=== PATIENT | male | born 1975 | race Caucasian/White ===

== ENCOUNTER 2021-06-25 14:46 | Emergency (ER) | payer SELFPAY ==
[~2021-06-25] VITALS: Ht 167.6 cm; Wt 63.5 kg
--- NOTE | 2021-06-25 15:00 | NUR ---
Pt brought by self, A&Ox4, pt presents to ER with cough/congestion, skin pink and warm, cap refill <3, VSS, respirations even and unlabored
--- NOTE | 2021-06-25 15:10 | NUR ---
Note fatmata in EDM - 06/25/21 at 1604 by [email or web address] Pt brought by self, A&Ox4, pt presents to ER with cough/congestion, skin pink and warm, cap refill <3, VSS.
[2021-06-25 15:14] VITALS: BP_SYST 152
--- NOTE | 2021-06-25 15:30 | NUR ---
Dr Dutton evaluating patient at bedside
[2021-06-25] MEDS ORDERED: ALBMDI INH (15:42)
[2021-06-25 17:30] VITALS: BP_SYST 152
--- NOTE | 2021-06-25 17:30 | NUR ---
Patient given written and verbal discharge instructions and verbalizes understanding. ER MD discussed with patient the results and treatment provided. Patient in stable condition. ID arm band removed. Rx of Albuterol given. Patient educated on pain management and to follow up with PMD. Pain Scale 2/10 . Opportunity for questions provided and answered. Medication side effect fact sheet provided.
== END 2021-06-25 17:30 | disposition home or self-care (01) ==
LOC: SED 14:46
DX: U07.1 COVID-19 (principal); Z79.899 Other long term (current) drug therapy
CPT/HCPCS: 71045; 99284; C9803; U0003

== ENCOUNTER 2021-07-27 05:12 | Emergency (ER) | payer SELFPAY ==
[~2021-07-27] VITALS: Ht 170.2 cm; Wt 86.2 kg
[2021-07-27 05:12] VITALS: BP_SYST 137
[~2021-07-27 05:12] MED LIST: ALBMDI INH
--- NOTE | 2021-07-27 05:12 | NUR ---
ER at bedside examining patient.
--- NOTE | 2021-07-27 05:12 | NUR ---
Patient ambulatory to bed 1 for evaluation and treatment
--- NOTE | 2021-07-27 06:20 | NUR ---
PT A&O X4, VERBAL, AMBULATORY, NO SOB/ DISTRESS, NO C/O PAIN AT THIS TIME, D/C INSTRUCTION DISCUSSED, EDUCATION, F/U INSTRUCTION DISCUSSED BY DR. STONER, NO FURTHER NEEDS.
== END 2021-07-27 06:22 | disposition home or self-care (01) ==
LOC: SED 05:12
DX: R07.89 Other chest pain (principal); F41.9 Anxiety disorder, unspecified; Z79.899 Other long term (current) drug therapy
CPT/HCPCS: 99281